=== PATIENT | female | born 1945 | race Caucasian/White ===

== ENCOUNTER 2021-10-25 18:29 | Emergency (ER) | payer OTHER ==
[~2021-10-25] VITALS: Ht 160 cm; Wt 71.7 kg
[2021-10-25 18:38] VITALS: BP_SYST 137; BP_SYST 150; BP_DIAS 61; BP_DIAS 74
--- NOTE | 2021-10-25 18:58 | NUR ---
76 F C/O DIZZINESS AND NAUSEA ONSET TODAY. STATES HAVING HER BLOOD DRAWN TODAY AT A CLINIC AND SINCE THE DRAW, SITE IS PAINFUL. STATES DIZZINESS ONSET SHORTLY AFTER THE DRAW. DENIES ANY BLURRY VISION. DENIES SOB OR CP. DENIES NUMBNESS OR TINGLING. ON MONITOR. BLOOD DRAWN. AAOX4, AMBULATORY. ERMD AT BEDSIDE. PMH: HTN, HX OF BREAST CANCER ALLERGIES: IODINE
[2021-10-25 19:39] LABS: BASOPHILS # (AUTO) 0.1 K/uL (0.00-0.22); EOSINOPHILS # (AUTO) 0.2 K/uL (0-0.4); EOSINOPHILS % (AUTO) 3.8 % (0.0-4.0); HEMATOCRIT 37.2 % (36-48); LYMPHOCYTES # (AUTO) 1.7 K/uL (2.5-16.5); LYMPHOCYTES % (AUTO) 29.4 % (20.5-51.1); MEAN CORPUSCULAR HEMOGLOBIN 32 pg (27-31); MEAN CORPUSCULAR HGB CONC 35 g/dL (33-37); MONOCYTES # (AUTO) 0.6 K/uL (0.8-1.0); MONOCYTES % (AUTO) 11.3 % (1.7-9.3); NEUTROPHILS # (AUTO) 3.1 K/uL (1.8-7.7); NEUTROPHILS % (AUTO) 54.5 % (42.2-75.2); PLATELET COUNT (AUTO) 180 K/uL (140-450); RED BLOOD CELL COUNT(AUTO) 4.09 MIL/uL (4.20-5.40); RED CELL DISTRIBUTION WIDTH 12.8 % (11.6-13.7); WHITE BLOOD COUNT (AUTO) 5.7 K/uL (4.8-10.8)
[2021-10-25] MEDS ORDERED: MORPHINE SULFATE 4 MG/ML SYR ONE (19:49)
[2021-10-25] MEDS ORDERED: ONDANSETRON 4 MG/2 ML VIAL ONE (19:49)
[2021-10-25 19:56] LABS: ALBUMIN 3.7 g/dL (3.4-5.0); ANION GAP 11.5 (8-16); ASPARTATE AMINOTRANSFERASE 23 U/L (15-37); CARBON DIOXIDE 27.4 mmol/L (21-32); CHLORIDE 104 mmol/L (98-107); GLUCOSE 97 mg/dL (74-106); POTASSIUM 3.9 mmol/L (3.5-5.1); SODIUM SERUM 139 mmol/L (136-145); TOTAL BILIRUBIN 0.4 mg/dL (0.0-1.0); UREA NITROGEN, BLOOD 19 mg/dL (7-18)
[2021-10-25 20:12] LABS: PROTHROMBIN TIME 9.9 secs (10.8-13.4)
--- NOTE | 2021-10-25 20:40 | NUR ---
Patient discharged with v/s stable. Written and verbal after care instructions given and explained. Patient verbalized understanding. Ambulatory with steady gait. All questions addressed prior to discharge. Advised to follow up with PMD. VSS, A/OX4, UNLABORED BREATHING, AMBULATORY, AND CALM DEMEANOR.
[2021-10-25 21:09] VITALS: BP 135/75
== END 2021-10-25 20:40 | disposition home or self-care (01) ==
LOC: MED 18:29
DX: S60.222A Contusion of left hand, initial encounter (principal); S60.221A Contusion of right hand, initial encounter; Z88.8 Allergy status to other drugs, medicaments and biological substances; Z98.890 Other specified postprocedural states; Z85.3 Personal history of malignant neoplasm of breast; X58.XXXA Exposure to other specified factors, initial encounter; Y93.89 Activity, other specified; Y92.89 Other specified places as the place of occurrence of the external cause; Y99.8 Other external cause status
CPT/HCPCS: 36415; 80053; 81002; 85025; 85610; 85730; 99283; J2270; J2405

== ENCOUNTER 2022-01-25 21:05 | Observation (INO) | payer OTHER ==
[~2022-01-25] VITALS: Ht 160 cm; Wt 77.1 kg
[2022-01-25 21:05] VITALS: BP 124/72
--- NOTE | 2022-01-25 21:07 | NUR ---
EMRE ALS TO BED #1
--- NOTE | 2022-01-25 21:52 | NUR ---
pt is arabic speaker. alert oriented x 4, able to follow command. cooperative, complain about 9/10 pain.
[2022-01-25] MEDS ORDERED: ASPIRIN 325 MG TAB PO ONE (22:30)
[2022-01-25] MEDS ORDERED: NITROGLYCERIN 2% 1 GM PKT TP ONE (22:30)
[2022-01-25] MEDS ORDERED: ENOXAPARIN 80 MG/0.8 ML SYR SUBQ ONE (22:30)
[2022-01-25] MEDS ORDERED: MORPHINE SULFATE 4 MG/ML SYR IVP ONE (22:30)
[2022-01-25 22:51] LABS: ALBUMIN 3.3 g/dL (3.4-5.0); ANION GAP 12.5 (8-16); ASPARTATE AMINOTRANSFERASE 25 U/L (15-37); CARBON DIOXIDE 26.1 mmol/L (21-32); CHLORIDE 103 mmol/L (98-107); GLUCOSE 134 mg/dL (74-106); POTASSIUM 3.6 mmol/L (3.5-5.1); SODIUM SERUM 138 mmol/L (136-145); TOTAL BILIRUBIN 0.2 mg/dL (0.0-1.0); UREA NITROGEN, BLOOD 21 mg/dL (7-18)
[2022-01-25 23:07] LABS: BASOPHILS # (AUTO) 0.1 K/uL (0.00-0.22); BASOPHILS % (AUTO) 0.8 % (0.0-2.0); EOSINOPHILS # (AUTO) 0.2 K/uL (0-0.4); EOSINOPHILS % (AUTO) 3.7 % (0.0-4.0); HEMATOCRIT 35.5 % (36-48); HEMOGLOBIN 12.4 g/dL (12.0-16.0); LYMPHOCYTES # (AUTO) 1.6 K/uL (2.5-16.5); LYMPHOCYTES % (AUTO) 25.4 % (20.5-51.1); MEAN CORPUSCULAR HEMOGLOBIN 32 pg (27-31); MEAN CORPUSCULAR HGB CONC 35 g/dL (33-37); MEAN CORPUSCULAR VOLUME 91.5 fL (80-94); MONOCYTES # (AUTO) 0.7 K/uL (0.8-1.0); NEUTROPHILS # (AUTO) 3.8 K/uL (1.8-7.7); NEUTROPHILS % (AUTO) 59.1 % (42.2-75.2); PLATELET COUNT (AUTO) 156 K/uL (140-450); RED BLOOD CELL COUNT(AUTO) 3.88 MIL/uL (4.20-5.40); RED CELL DISTRIBUTION WIDTH 12.6 % (11.6-13.7); WHITE BLOOD COUNT (AUTO) 6.4 K/uL (4.8-10.8)
[2022-01-26] MEDS ORDERED: ACETAMINOPHEN 325 MG TAB PO PRN (03:10)
[2022-01-26] MEDS ORDERED: MORPHINE SULFATE 4 MG/ML SYR IVP PRN (03:10)
[2022-01-26] MEDS ORDERED: KCL 20 MEQ/WATER INJ PREMIX 200 ML IV PRN (03:10)
[2022-01-26] MEDS ORDERED: POTASSIUM CHLORIDE 10 MEQ TABER PO PRN (03:10)
[2022-01-26] MEDS ORDERED: MAGNESIUM OXIDE 400 MG TAB PO PRN (03:10)
[2022-01-26] MEDS ORDERED: ONDANSETRON 4 MG/2 ML VIAL IVP PRN (03:10)
[2022-01-26] MEDS ORDERED: MAG SULF 2000 MG/WATER PREMIX 50 ML IV PRN (03:10)
[2022-01-26] MEDS ORDERED: HYDROcodone/APAP 5/325 MG 1 TAB TAB PO PRN (03:10)
--- NOTE | 2022-01-26 05:30 | NUR ---
pt is awake. She said she is not sleepy.
--- NOTE | 2022-01-26 05:31 | NUR ---
PT MOVED TO BED #5
--- NOTE | 2022-01-26 05:51 | NUR ---
PT ADMITTED ORDERS RECIEVED. PT WILL BE A TELE HOLD
--- NOTE | 2022-01-26 05:51 | NUR ---
PT HAVING PAIN 6/10 SHARP/STABBING PAIN. NON RADIATING. PT ON BEDSIDE SURFBOARD MAKER. PT IS A&OX4. RESP EVEN AND UNLABORED. HOB ELEVATED. SKIN WARM AND DRY. IODINE BREAST CA
[2022-01-26] MEDS ORDERED: APIX5TAB PO ×2 (06:21→07:10)
--- NOTE | 2022-01-26 06:21 | NUR ---
MED RECONCILE COMPLETED. PT ONLY REMEMBERS TAKING ELIQUIS BUT NOT OTHER MEDICATIONS.
[2022-01-26] MEDS ORDERED: DIPH25TA53 PO (07:09)
[2022-01-26] MEDS ORDERED: CAPE500T1 PO (07:10)
[2022-01-26] MEDS ORDERED: ZOLP10TA1 PO (07:11)
[2022-01-26] MEDS ORDERED: TEMA15CA11 PO (07:12)
[2022-01-26] MEDS ORDERED: TEMA15CA24 PO (07:18)
--- NOTE | 2022-01-26 07:25 | NUR ---
REPORT RECEIVED FROM KIKO MONTAÑO. ASSUMED CARE AT THIS TIME
--- NOTE | 2022-01-26 07:30 | NUR ---
pt awake and at rest laying supine position. on cardiac/vascular sonographer. bed at lowest position, bed rails upx2
--- NOTE | 2022-01-26 08:50 | NUR ---
Patient will be admitted to care of MD HAMILTON . Admited to TELE. Will go to room 121B . Belongings list completed. Report to CARMEL MONTAÑO.
[2022-01-26 08:55] VITALS: BP 139/67
--- NOTE | 2022-01-26 08:55 | NUR ---
RECEIVED PT FROM ER NURSE LORENZO VIA [facility]. PT ABLE TO AMBULATE FROM THE GURNEY TO THE BED. RESPIRATIONS EVEN AND UNLABORED ON RA. NO DISTRESS NOTED. NO COMPLAINTS OF PAIN. A&O4, ABLE TO MAKE NEEDS KNOWN. V/S TAKEN. ATTACHED TO SYSTEMS OPERATOR UPON ARRIVAL TO THE UNIT. SKIN IS INTACT, WARM AND DRY TO TOUCH. IV SITE ON LEFT HAND 20G, SL. MRSA SWAB TAKEN. PT ORIENTED TO ROOM, UNIT AND ROUTINE. CALL LIGHT WITHIN REACH. SAFETY PRECAUTIONS IN PLACE.
--- NOTE | 2022-01-26 09:49 | NUR ---
PATIENT HAS BEEN SCREENED AND CATEGORIZED LOW NUTRITION RISK. PATIENT WILL BE SEEN WITHIN 7 DAYS OF ADMISSION. 01/26/22-02/02/[address]
--- NOTE | 2022-01-26 10:13 | NUR ---
ADMINISTERED SCHEDULED MED. PT FINISHED EATING BREAKFAST. PT TOLERATED DIET WELL. NO COMPLAINTS OF CHEST PAIN. NO SOB, DIFFICULTY BREATHING.
[2022-01-26 12:00] VITALS: BP 122/65
--- NOTE | 2022-01-26 12:20 | NUR ---
PT SITTING IN BED, EATING LUNCH. NO COMPLAINTS OF PAIN. NO SOB. NO DISTRESS NOTED.
--- NOTE | 2022-01-26 15:45 | NUR ---
PT SLEEPING. RESPIRATIONS EVEN AND UNLABORED. NO DISTRESS NOTED. WILL CONTINUE TO MONITOR.
[2022-01-26 16:00] VITALS: BP 116/67
--- NOTE | 2022-01-26 17:32 | NUR ---
PT CHECKED AND SEEN BY DR CORADO.
[2022-01-26 18:47] VITALS: BP 116/67
--- NOTE | 2022-01-26 19:05 | NUR ---
DC PAPERS DISCUSSED WITH THE PT. PT VERBALIZED UNDERSTANDING. PT TO BE PICKED UP BY SON. ASSISTED PT TO CHANGE CLOTHES. PT AWAITING FOR GLOVE PAIRER. WILL ENDORSE TO MANAGER SHELL NURSE.
--- NOTE | 2022-01-26 19:10 | NUR ---
ENDORSED PT TO DATA GOVERNANCE ANALYST NURSE FOR CONTINUITY OF CARE. ALL NEEDS MET THROUGHOUT SHIFT. PT IS STABLE.
--- NOTE | 2022-01-26 19:30 | NUR ---
PT WAS PICKED UP BY FAMILY MEMBER, PT STABLE, IV SITE AND BOOK CANVASSER REMOVED
[2022-01-26] MEDS ORDERED: APIXABAN 2.5 MG TAB PO SCH (21:00)
== END 2022-01-26 19:30 | disposition home or self-care (01) ==
LOC: MED 21:05 → MTU 01-26 03:13
PROVIDERS: ADMIT Hospitalist; ATTEND Hospitalist
DX: R07.89 Other chest pain (principal); Z20.822 Contact with and (suspected) exposure to COVID-19; I20.9 Angina pectoris, unspecified; I10 Essential (primary) hypertension; Z85.3 Personal history of malignant neoplasm of breast; Z86.711 Personal history of pulmonary embolism; Z79.899 Other long term (current) drug therapy
CPT/HCPCS: 36415; 71045; 80053; 83880; 84484; 85025; 87081; 87426; 93005; 96372; 96374; 99291; G0378; J1644; J1650; J2270; Q0092

== ENCOUNTER 2022-08-03 21:26 | Emergency (ER) | payer OTHER ==
[~2022-08-03] VITALS: Ht 160 cm; Wt 77.1 kg
[~2022-08-03 21:26] MED LIST: APIX5TAB PO; CAPE500T1 PO; TEMA15CA11 PO; TEMA15CA24 PO; ZOLP10TA1 PO
[2022-08-03 21:31] VITALS: BP 154/68
--- NOTE | 2022-08-03 21:36 | NUR ---
PT EMRE REDD. TAKEN TO BED 11
[2022-08-03] MEDS ORDERED: NACL 0.9% 1,000 ML IV ONE (21:45)
[2022-08-03] MEDS ORDERED: ONDANSETRON 4 MG/2 ML VIAL IVP ONE (21:45)
--- NOTE | 2022-08-03 21:51 | NUR ---
X-Ray at bedside.
[2022-08-03 22:11] LABS: BASOPHILS # (AUTO) 0.1 K/uL (0.00-0.22); BASOPHILS % (AUTO) 0.8 % (0.0-2.0); EOSINOPHILS # (AUTO) 0.2 K/uL (0-0.4); EOSINOPHILS % (AUTO) 2.2 % (0.0-4.0); HEMATOCRIT 38.8 % (36-48); HEMOGLOBIN 13.3 g/dL (12.0-16.0); LYMPHOCYTES % (AUTO) 12.9 % (20.5-51.1); MEAN CORPUSCULAR HEMOGLOBIN 32 pg (27-31); MEAN CORPUSCULAR HGB CONC 34 g/dL (33-37); MEAN CORPUSCULAR VOLUME 91.4 fL (80-94); MONOCYTES # (AUTO) 0.4 K/uL (0.8-1.0); MONOCYTES % (AUTO) 5.9 % (1.7-9.3); NEUTROPHILS # (AUTO) 5.8 K/uL (1.8-7.7); NEUTROPHILS % (AUTO) 78.2 % (42.2-75.2); PLATELET COUNT (AUTO) 143 K/uL (140-450); RED BLOOD CELL COUNT(AUTO) 4.24 MIL/uL (4.20-5.40); RED CELL DISTRIBUTION WIDTH 12.5 % (11.6-13.7); WHITE BLOOD COUNT (AUTO) 7.4 K/uL (4.8-10.8)
[2022-08-03 22:24] LABS: ALBUMIN 3.5 g/dL (3.4-5.0); ANION GAP 15.8 (8-16); ASPARTATE AMINOTRANSFERASE 37 U/L (15-37); CARBON DIOXIDE 22.9 mmol/L (21-32); CHLORIDE 103 mmol/L (98-107); CREATININE 0.8 mg/dL (0.6-1.3); GLUCOSE 166 mg/dL (74-106); POTASSIUM 4.7 mmol/L (3.5-5.1); SODIUM SERUM 137 mmol/L (136-145); TOTAL BILIRUBIN 0.5 mg/dL (0.0-1.0); UREA NITROGEN, BLOOD 20 mg/dL (7-18)
[2022-08-03 22:41] LABS: LIPASE 137 U/L (73-393)
--- NOTE | 2022-08-03 22:56 | NUR ---
PT TAKEN TO CT
--- NOTE | 2022-08-04 02:38 | NUR ---
Maria Elena matias in [facility] - 08/04/22 at 0410 by HENRI TELENEURO DOCTOR SPEAKING WITH PATIENT VIA REMOTE COMMUNICATION
--- NOTE | 2022-08-04 04:11 | NUR ---
Dr. Hardin examining patient.
[2022-08-04] MEDS ORDERED: AMOX1TER12 PO (05:14)
--- NOTE | 2022-08-04 05:20 | NUR ---
Pt with d/c paperwork. spoke with son, Tyron, who stated he will arrive to slat pickler patient in 45 minutes.
[2022-08-04 06:39] VITALS: BP 114/49
--- NOTE | 2022-08-04 06:39 | NUR ---
Patient discharged with v/s stable. Written and verbal after care instructions given and explained. New rx amoxicillin/potassium clav. Patient verbalized understanding. Ambulatory with steady gait. All questions addressed prior to discharge. Advised to follow up with PMD.
== END 2022-08-04 06:39 | disposition home or self-care (01) ==
LOC: MED 21:26
DX: K57.92 Diverticulitis of intestine, part unspecified, without perforation or abscess without bleeding (principal); R51.9 Headache, unspecified; R42 Dizziness and giddiness; R11.2 Nausea with vomiting, unspecified; I10 Essential (primary) hypertension; Z85.3 Personal history of malignant neoplasm of breast
CPT/HCPCS: 36415; 71045; 74018; 74176; 80053; 83690; 83880; 84484; 85025; 93005; 96361; 96374; 99285; J2405; J7030; Q0092